=== PATIENT | female | born 2005 | race Caucasian/White ===

== ENCOUNTER 2024-04-02 15:37 | Emergency (ER) | payer OTHER, SELFPAY ==
[2024-04-02 15:49] VITALS: BP 144/80; PULSE 93; RESP 18; TEMP 37.1; O2SAT 100; BMI 26.6
--- NOTE | 2024-04-02 15:58 | ED_ITS ---
HPI - General Adult General Chief complaint: Laceration/Wound Stated complaint: Left pinky finger cut Time Seen by Provider: 04/02/24 15:54 Source: patient Mode of arrival: ambulatory Limitations: no limitations History of Present Illness HPI narrative: Female presenting today with a laceration to the left pinky finger. Patient was cutting tomatoes when the knife slipped. She has no other concerns today. Denies any allergies. Related Data Home Medications ?Medication ?Instructions ?Recorded ?Confirmed No Known Home Medications 04/02/24 04/02/24 Allergies Allergy/AdvReac Type Severity Reaction Status Date / Time No Known Drug Allergies Allergy Verified 04/02/24 15:51 Review of Systems Status of ROS: Reports: 6 or more systems reviewed and unremarkable except as noted in History and below PFSH FOR[facility]LY [facility] Social History Smoking Status: Never smoker How often do you have a drink containing alcohol: never How often do you have six or more drinks on one occasion: Never AUDIT-C Alcohol total score: 0 Non-prescribed substance use: denies use Exam Narrative: Exam Narrative: Well-nourished well-developed patient in no acute distress. Alert and oriented. Answers questions appropriately. Mood and affect are appropriate. Thoughts are goal oriented and rational. No tangential or magical thinking noted. Patient speaks in full sentences without needing to catch her breath. Well groomed. HEENT: Normocephalic atraumatic. Extraocular muscles are intact. Conjunctivae are moist without any icterus noted. Moist mucous membranes. Extremities: Patient has a less than 1 cm laceration on the pad of the distal 5th digit on the left hand. The laceration penetrates through the dermis into the subcutaneous tissue. Does not penetrate through the subcutaneous tissue. Const: Vital Signs, click to edit/add: Vital Signs - 24 hr 04/02/24 15:49 Temperature 98.8 F Pulse Rate [Right Pulse Oximeter] 93 Respiratory Rate 18 Blood Pressure [Ri ght Upper Arm] 144/80 H Pulse Oximetry 100 Oxygen Delivery Me thod Room Air Course Course ED Course: Wound was cleaned and anesthetized with 2% lidocaine. Two sutures with 4 Ethilon were placed without difficulty. Patient tolerated the procedure well. Vital Signs Vital signs: Initial Vital Signs Temperature 98.8 F 04/02/24 15:49 Temperature Source Temporal Artery Scan 04/02/24 15:49 Pulse Rate 93 04/02/24 15:49 Respiratory Rate 18 04/02/24 15:49 Blood Pressure 144/80 H 04/02/24 15:49 Blood Pressure Mean 101 04/02/24 15:49 Blood Pressure Position Sitting 04/02/24 15:49 Pulse Oximetry 100 04/02/24 15:49 Oxygen Delivery Method Room Air 04/02/24 15:49 Vital Signs Temperature 98.8 F 04/02/24 15:49 Pulse Rate 93 04/02/24 15:49 Respiratory Rate 18 04/02/24 15:49 Blood Pressure 144/80 H 04/02/24 15:49 Pulse Oximetry 100 04/02/24 15:49 Oxygen Delivery Method Room Air 04/02/24 15:49 Temperature 98.8 F 04/02/24 15:49 Pulse Rate 93 04/02/24 15:49 Respiratory Rate 18 04/02/24 15:49 Blood Pressure 144/80 H 04/02/24 15:49 Pulse Oximetry 100 04/02/24 15:49 Oxygen Delivery Method Room Air 04/02/24 15:49 Medications Administered Medications: Discontinued Medications Generic Name Dose Route Start Last Admin Trade Name Freq PRN Reason Stop Dose Admin Lidocaine HCl 20 ml 04/02/24 15:57 04/02/24 16:13 Lidocaine Hcl 2 % Multidose 20 Ml Vial INJECTION 04/02/24 15:58 5 ml ONCE ONE Administration Medical Decision Making MDM Narrative Medical decision making narrative: Laceration left 5th digit, treated per above. We discussed signs and symptoms of infections, reasons to return for follow-up, suture removal in approximately 1 week. Patient had no other questions. Of note, patient's tetanus was last done in September of 2014, therefore did go ahead and update that today. Discharge Plan Discharge Clinical Impression: Laceration Patient Disposition: Home, Self-Care Condition: Improved Additional Instructions: Keep wound clean and dry. Do not soak such as taking baths, swimming or doing dishes. Follow-up in approximately 1 week for suture removal with your primary care provider. Watch for signs and symptoms of infection including increasing redness of the area, purulent drainage, or fever. If this occurs follow-up right away with your doctor or return to the ER. Keep finger covered when playing basketball. Prescriptions: No Action No Known Home Medications Follow Up/Referrals: Provider,Not a Local [Primary Care Provider] - Stand Alone Forms: House Party Info Instructions
[2024-04-02] MEDS: lidocaine HCL 2 % MULTIDOSE 20 ML VIAL INJECTION (16:13)
[2024-04-02] MEDS: TETANUS/DIPHTH/PERTUSSIS 0.5 ML SYRINGE IM (16:51)
[2024-04-02 16:59] VITALS: BP 130/67; PULSE 84; RESP 16; O2SAT 100
== END 2024-04-02 17:02 | disposition home or self-care (01) ==
PROVIDERS: Emergency Provider Family Medicine
DX: S61.217A Laceration without foreign body of left little finger without damage to nail, initial encounter (principal); W26.0XXA Contact with knife, initial encounter; Z23 Encounter for immunization
CPT/HCPCS: 12001; 90471; 90715; 99283; 99284